=== PATIENT | male | born 1965 | race Caucasian/White ===

== ENCOUNTER → 2017-12-29 | Emergency (ER) | payer OTHER ==
[~2017-12-29] VITALS: Ht 188 cm; Wt 93.0 kg
== END | disposition designated cancer center or children's hospital (05) ==
LOC: ER 17:07
DX: F10.20 Alcohol dependence, uncomplicated (principal)

== ENCOUNTER 2018-04-15 16:57 | Emergency (ER) | payer OTHER ==
[~2018-04-15] VITALS: Ht 188 cm; Wt 90.7 kg
== END 2018-04-15 18:23 | disposition home or self-care (01) ==
LOC: ER 16:57
DX: F10.980 Alcohol use, unspecified with alcohol-induced anxiety disorder (principal)

== ENCOUNTER → 2018-08-17 | Emergency (ER) | payer OTHER ==
[~2018-08-17] VITALS: Ht 188 cm; Wt 88.5 kg
== END | disposition designated cancer center or children's hospital (05) ==
LOC: ER 10:38
DX: F10.20 Alcohol dependence, uncomplicated (principal); Y90.9 Presence of alcohol in blood, level not specified

== ENCOUNTER 2021-09-18 13:44 | Emergency (ER) | payer OTHER ==
[~2021-09-18] VITALS: Ht 188 cm; Wt 89.8 kg
== END 2021-09-20 18:02 | disposition designated cancer center or children's hospital (05) ==
LOC: ER 13:44
DX: F10.20 Alcohol dependence, uncomplicated (principal); Z20.828 Contact with and (suspected) exposure to other viral communicable diseases

== ENCOUNTER 2021-10-20 20:35 | Emergency (ER) | payer OTHER ==
[~2021-10-20] VITALS: Ht 188 cm; Wt 88.0 kg
== END 2021-10-22 11:54 | disposition left against medical advice (07) ==
LOC: ER 20:35
DX: F10.229 Alcohol dependence with intoxication, unspecified (principal); Z20.822 Contact with and (suspected) exposure to COVID-19; Z88.6 Allergy status to analgesic agent

== ENCOUNTER 2022-07-19 15:21 | Emergency (ER) | payer OTHER ==
[~2022-07-19] VITALS: Ht 188 cm; Wt 80.7 kg
== END 2022-07-19 18:50 | disposition home or self-care (01) ==
LOC: ER 15:21
DX: M25.511 Pain in right shoulder (principal); Z88.8 Allergy status to other drugs, medicaments and biological substances

== ENCOUNTER 2022-08-06 12:54 | Emergency (ER) | payer OTHER ==
[~2022-08-06] VITALS: Ht 182.9 cm; Wt 81.6 kg
== END 2022-08-06 19:34 | disposition home or self-care (01) ==
LOC: ER 12:54
DX: S62.111A Displaced fracture of triquetrum [cuneiform] bone, right wrist, initial encounter for closed fracture (principal); S29.8XXA Other specified injuries of thorax, initial encounter; W50.0XXA Accidental hit or strike by another person, initial encounter; Y93.89 Activity, other specified; Y92.89 Other specified places as the place of occurrence of the external cause; Z88.8 Allergy status to other drugs, medicaments and biological substances; F32.9 Major depressive disorder, single episode, unspecified

== ENCOUNTER 2022-08-07 07:00 | Emergency (ER) | payer OTHER ==
[~2022-08-07] VITALS: Ht 188 cm; Wt 81.6 kg
== END 2022-08-07 16:19 | disposition home or self-care (01) ==
LOC: ER 07:00
DX: S60.211A Contusion of right wrist, initial encounter (principal); S20.219A Contusion of unspecified front wall of thorax, initial encounter; X58.XXXA Exposure to other specified factors, initial encounter; Y93.89 Activity, other specified; Y92.89 Other specified places as the place of occurrence of the external cause; Y99.8 Other external cause status; Z88.8 Allergy status to other drugs, medicaments and biological substances; Z88.6 Allergy status to analgesic agent